=== PATIENT | female | born 1995 ===

== ENCOUNTER 2016-09-18 09:10 | Emergency (ER) | payer MEDICAID ==
[~2016-09-18] VITALS: Ht 165.1 cm; Wt 131.8 kg
[~2016-09-18 09:10] MED LIST: DOCU-41 PO; FAMO20T PO; HYOS0.1281 SL; IBUP800T28 PO; METF500T4 PO; ONDA4TAB9 PO; ONDA8TAB10 PO; OXYC1TAB24 PO; PANT20T PO; [UNRECOGNIZED DRUG - OTHER] PO
[2016-09-18 09:13] VITALS: BP 132/74; PULSE 85; RESP 18; O2SAT 98
[2016-09-18] MEDS ORDERED: CHOL500050 PO (09:37)
--- NOTE | 2016-09-18 10:08 | ED.REPORT ---
HPI-Back Pain Under 40 Date of Service Sep 18, 2016 ED Provider: Nancy Leonardo MD Patient is a 21 year old female with a history of chronic back pain and scoliosis who presents to the ED complaining of increased back pain onset yesterday. Associated symptoms include numbness in her right leg and that her right leg feels cold. She denies incontinence, bowel or bladder dysfunction. The patient reports that this morning at 0400 the numbness had slightly improved but she was experiencing a tingling paresthesia and her back pain had worsened. She denies any use of pain medication. Nursing Notes Stated Complaint: NUMBNESS IN RT LEG AND HIP CAUSING PAIN Chief Complaint: Back Pain or Injury Nursing Notes Reviewed: Yes Allergies: Coded Allergies: No Known Allergies (Verified Allergy, Unknown, 10/10/15) Miscellaneous Medications Cholecalciferol (Vitamin D3) (Vitamin D) 50,000 Unit Capsule 50,000 UNIT PO General Time Seen by MD: 10:05 Chief Complaint Back pain Hx Obtained From: Patient Arrived By: Walk-in Sudden in Onset?: Yes Onset Occurred: Yesterday Symptom Duration: Since onset Location: : Spinal lumbar area Quality: Painful Radiation: : Right leg above knee Severity: Current: Severe Severity: Maximum: Severe Recent Healthcare: No recent hospitalization, Recent doctor visit Similar Sx Previous: Yes Past Medical History Past Medical History Normal vaginal delivery on 09/18/2015 Cholecystitis as a child chronic back pain scoliosis Reports: Obesity Past Surgical History Reports: Appendectomy Family History Noncontributory Smoking History Unknown if Ever Smoker Social History Alcohol Use: Denies alcohol use Drug Use: Denies drug use Other Social History: Good social support, Lives with children, Local resident Ambulatory Status Independent Review of Systems Constitutional: Denies: Chills, Fever Respiratory: Denies: Non-productive cough, Shortness of breath Female: Denies: Incontinence Musculoskeletal: Reports: Back pain, Extremity pain (right leg) Neurologic: Reports: Numbness, Denies: Bladder dysfunction, Bowel dysfunction, Problem walking Complete sys rev & neg: except as marked. Skin: Denies Itching, Denies Rash Physical Exam Initial Vital Signs Vital Signs (First) Date Time Temp Pulse Resp B/P Pulse Ox O2 Delivery O2 Flow Rate FiO2 09/18/16 09:13 36.6 85 18 132/74 98 Room Air Initial VS: Reviewed General/Constitutional: Awake, Alert Neurologic: Oriented X3, Speech NL, No motor deficits, No sensory deficits Respiratory / Chest: Atraumatic, Breath sounds NL, Breath sounds = bilat, No respiratory distress Cardiovascular: Heart rate NL, Regular rhythm, Heart sounds NL Lower Extremity / Pelvis / MS: Neurologic intact, Vascular intact decreased right patellar and ankle reflex subjectively both leg temperatures were the same Head / Eyes: Atraumatic, Normocephalic, PERRL, EOMI Skin: Atraumatic, Color NL, No rash, Warm, Dry Psychiatric: Affect NL, Mood NL Interpretation & Diagnostics Interpretation & Diagnostics: LUMBAR SPINE MRI: IMPRESSION: No acute trauma found but there is overall moderately severe degenerative disc disease and 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 Dictated by: Abisai Canchola M.D. on 09/18/2016 at 14:24 Approved by: Abisai Canchola M.D. on 09/18/2016 at 14:32 Re-Eval/Medical Decision Re-Evaluation/Progress #1: Time of Eval: 15:12 Re-Evaluation/Progress Note: Discussed MRI results and plan to consult with neurosurgery. Re-Evaluation/Progress #2: Time of Eval: 15:49 Re-Evaluation/Progress Note: Patient would like to be discharged. She is given a referral to follow up with neurosurgery. Discussed plan for discharge. Patient understands and agrees to the plan. All questions were addressed. Counseled Regarding: Diagnosis, Lab results, Need for follow-up, When/why to return to ED Discharge & Departure Impression: Primary Impression: Spinal stenosis Spinal region: lumbar Qualified Code: M48.06 - Spinal stenosis, lumbar region Additional Impression: Herniated disc Spinal region: lumbar Qualified Code: M51.26 - Other intervertebral disc displacement, lumbar region Disposition: Home All VS Reviewed: Yes Condition: Stable Patient Instructions: Cervical Disc Herniation (ED), Cervical Spinal Stenosis ( ED) Additional Instructions: Your MRI showed spinal stenosis and a herniated disc, this is likely causing nerve impingement and your back pain. You should follow up with the neurosurgeon for further evaluation. You may need a referral from your primary care doctor to get an appointment. I've given you the name of the providers up in [place] as well as one of the providers in [place]. You can take Tylenol or ibuprofen as needed for pain. Referrals: Livier Pedroza (PCP) Jack Walker MD Attestation Portions of this note were transcribed by Kathy Beltran. I, Dr. Leonardo personally performed the history, physical exam and medical decision-making; I reviewed and confirmed the accuracy of the information in the transcribed note. Signed by: Zaid Quintana, 09/18/16 and 1052 copies to: Jack Walker MD; Livier Pedroza; Jourdan Diaz MD, Shawna L MD Sep 18, 2016 10:08 Domenica Beltran Sep 18, 2016 10:48 Domenica Beltran Sep 18, 2016 10:48
[2016-09-18] MEDS ORDERED: oxyCODONE-Acetamin 5-325 mg Tablet PO ONE (11:30)
--- NOTE | 2016-09-18 14:35 | DRSVH ---
PROCEDURE: MRI LUMBAR SPINE WITHOUT CONTRAST ([id number]) INDICATIONS: acute R leg paresthesia, "cold", severe pain TECHNIQUE: Noncontrast sagittal T1 spin echo and T2 fast echo, sagittal STIR, axial T1 and T2 fast spin echo thr ough the lumbar spine. In cases with scoliosis, additional coronal T2 fast spin echo may be performe d. COMPARISON: [facility], CR, XR LUMBAR SPINE 2 OR 3VW, 04/25/2016, 12:06. [facility], CR, XR LUMBAR SPINE 2 OR 3VW, 08/10/2016, 11:03. FINDINGS: Image quality: Excellent. Alignment and Curvature: There is normal bony alignment. Bone Marrow: Marrow is of normal overall signal. No acute vertebral body compression fractures. Spinal Cord: Conus medullaris terminates at the L1 level. Visualized cord demonstrates normal signa l and size. Paraspinous Soft Tissues: No paravertebral masses. L1-L2: Normal appearance. L2-L3: There is moderately severe degenerative disc disease with a pattern of reduced disc height and disc desiccation with a broad-based posterior disc bulge most prominent at and to the right of midli ne where a disc protrusion or contiguous disc herniation is present which has a transverse dimension of 1 cm, a maximal AP dimension of 9 mm, and at maximal craniocaudad dimension of 1.5 cm. This cause s moderate spinal stenosis at and to the right of midline and combines with bilateral facet osteoarth ritis, left greater than right, to produce a moderate right and moderately severe left foraminal sten osis with likelihood of asymmetric impingement on the course of the L2 nerve roots. L3-L4: The degenerative disc disease at this level is also moderately severe, with disc degradation, disc desiccation, and also with a midline focal contiguous disc herniation causing near severe spinal stenosis, having a transverse dimension of 1.1 cm, an AP dimension of 1.0 cm, and a craniocaudad dim ension of 1.5 cm. Left greater than right moderate facet osteoarthritis is seen, with associated lef t greater than right moderate foraminal stenosis and potential for asymmetric impingement on the cour se of the L3 nerve roots. L4-L5: Moderate degenerative disc disease, with a disc height reduction and desiccation pattern but o nly minimal posterior disc bulging slightly greater on the left than the right. Facet osteoarthritis also appears greater on the left than the right with moderate left and mild to moderate right forami nal stenosis. Mild left-sided spinal stenosis is present. L5-S1: Normal. IMPRESSION: No acute trauma found but there is overall moderately severe degenerative disc disease a nd asymmetric left greater than right facet osteoarthritis as noted above most pronounced at L23 and L3-4, with both spinal and foraminal stenosis and contiguous disc herniations or disc protrusions at the L2-3 and L3-4 levels producing significant likelihood of nerve root impingement and spinal stenos is. Dictated by: Abisai Canchola M.D. on 09/18/2016 at 14:24 Approved by: Abisai Canchola M.D. on 09/18/2016 at 14:32
[2016-09-18 16:06] VITALS: BP 134/70; PULSE 80; RESP 16; O2SAT 98
== END 2016-09-18 16:08 | disposition home or self-care (01) ==
LOC: SED 09:10
DX: M48.06 Spinal stenosis, lumbar region (principal); M51.26 Other intervertebral disc displacement, lumbar region; M54.9 Dorsalgia, unspecified; G89.29 Other chronic pain; M41.9 Scoliosis, unspecified; E66.9 Obesity, unspecified; Z68.42 Body mass index [BMI] 45.0-49.9, adult
CPT/HCPCS: 72148; 96372; 99284; J1885

== ENCOUNTER 2016-09-20 02:22 | Emergency (ER) | payer MEDICAID ==
[~2016-09-20] VITALS: Ht 165.1 cm; Wt 137.7 kg
[~2016-09-20 02:22] MED LIST changes: +CHOL500050 PO; -DOCU-41 PO; -FAMO20T PO; -HYOS0.1281 SL; -IBUP800T28 PO; -METF500T4 PO; -ONDA4TAB9 PO; -ONDA8TAB10 PO; -OXYC1TAB24 PO; -PANT20T PO; -[UNRECOGNIZED DRUG - OTHER] PO
--- NOTE | 2016-09-20 02:27 | ED.REPORT ---
HPI-Back Pain Under 40 Date of Service Sep 20, 2016 ED Provider: Dr. Lala Pt is a 21 year old female with a hx of chronic back pain and scoliosis presenting to the ED via EMS complaining of worsened lower back pain onset 3 days ago. Associated symptoms include urinary incontinence, right sided leg pain , numbness in her hand, and bilateral leg tingling. She denies any bowel incontinence. She was seen in the ED 2 days ago for similar symptoms and was diagnosed by MRI with a herniated disc and spinal stenosis. Nursing Notes Stated Complaint: BACK PAIN Chief Complaint: Back pain Nursing Notes Reviewed: Yes Allergies: Coded Allergies: No Known Allergies (Verified Allergy, Unknown, 10/10/15) Scheduled PRN oxyCODONE-Acetaminophen 5-325 mg (oxyCODONE-Acetaminophen 5-325 mg) 1 Each Tablet 2 TAB PO [id number] PRN PRN For Pain Miscellaneous Medications Cholecalciferol (Vitamin D3) (Vitamin D) 50,000 Unit Capsule 50,000 UNIT PO General Time Seen by MD: 02:27 Chief Complaint Back pain Hx Obtained From: Patient Arrived By: Ambulance Sudden in Onset?: No Onset Occurred: 3 days ago Symptom Duration: Since onset Location: : Spinal lumbar area Quality: Painful Severity: Current: Moderate Severity: Maximum: Severe Recent Healthcare: No recent hospitalization, Recent doctor visit Similar Sx Previous: Yes Past Medical History Past Medical History Notes: LUMBAR SPINE MRI 09/18/2016: IMPRESSION: No acute trauma found but there is overall moderately severe degenerative disc disease and 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 Past Medical History Normal vaginal delivery on 09/18/2015 Cholecystitis as a child chronic back pain scoliosis Reports: Obesity Past Surgical History Reports: Appendectomy Family History Noncontributory Smoking History Unknown if Ever Smoker Social History Alcohol Use: Denies alcohol use Drug Use: Denies drug use Other Social History: Good social support, Lives with children, Local resident Ambulatory Status Independent Review of Systems Female: Reports: Incontinence Musculoskeletal: Reports: Back pain, Extremity pain Neurologic: Reports: Numbness, Denies: Bowel dysfunction Complete sys rev & neg: except as marked. Physical Exam Initial Vital Signs Vital Signs (First) Date Time Temp Pulse Resp B/P Pulse Ox O2 Delivery O2 Flow Rate FiO2 09/20/16 02:34 37.1 96 14 133/81 96 Room Air Initial VS: Reviewed Head / Eyes: Atraumatic, Normocephalic, PERRL ENT: Mucous membranes moist, Conjunctiva normal, No scleral icterus Neck: Supple, Non-tender, Full range of motion Respiratory: Breath sounds normal, Clear to auscultation, No respiratory distress Cardiovascular: Regular rate & rhythm, Heart sounds normal, Intact distal pulses Abdomen / GI: Soft, Non-tender, No guarding, No rebound, No distention Extremities: Vascular intact, Neuro intact, No swelling, No tenderness Skin: Warm, Dry, No cyanosis Psychiatric: Mood/affect normal, Behavior normal, Normal thought content General/Constitutional: Awake, Alert Appearance / Presentation: Positive: Obese Back: Atraumatic Flank / Spine / Paraspinal: Positive: Lumbar spine tender... Neurologic: Oriented X3, Speech NL, No motor deficits, No sensory deficits, Reflexes equal bilat Sensation intact in lower extremities. Re-Eval/Medical Decision Med Decision/Clinical Course 21-year-old documented lumbar disc disease and spinal stenosis presents with worsening right sciatica. She is on a low dose of oxycodone already, and was increased to two tablets 5 mg each every 4 hours when necessary. Improved here with Toradol and Robaxin in addition. Continue recently prescribed steroid taper. Discharged for follow-up with back surgeon is already being arranged by her PCP. Re-Evaluation/Progress : Time of Eval: 05:36 Patient Status: Condition improved Re-Evaluation/Progress Note: Discussed plan for discharge. Pt understands and agrees with plan. Counseled Regarding: Diagnosis, Lab results, Need for follow-up, When/why to return to ED Discharge & Departure Impression: Primary Impression: Spinal stenosis Spinal region: unspecified Qualified Code: M48.00 - Spinal stenosis, site unspecified Additional Impressions: Sciatica due to displacement of lumbar intervertebral disc Morbid obesity Disposition: Home All VS Reviewed: Yes Condition: Improved Patient Instructions: Lumbar Spinal Stenosis (ED), Sciatica (ED) Additional Instructions: Rest in a comfortable position as best as possible. Avoid bending, seated posture, and of course, avoid lifting, straining, and bending. Continue Naprosyn twice daily. Continue prescribed Dosepak. We will increase your oxycodone to two tablets every four hours as needed. Follow up with your doctor in the office. Your oxycodone will need to be renewed by your doctor. It cannot be renewed in the emergency department. Referrals: Livier Pedroza (PCP) Zaid Attestation Portions of this note were transcribed by Alanis Mo. I, Dr. Lala personally performed the history, physical exam and medical decision-making; I reviewed and confirmed the accuracy of the information in the transcribed note. Signed by: Zaid Franklin, 09/20/2016 at 0535. copies to: Livier Pedroza Christopher W MD Sep 20, 2016 02:27 ALANIS MO Sep 20, 2016 02:37
[2016-09-20 02:34] VITALS: BP 133/81; PULSE 96; RESP 14; O2SAT 96
[2016-09-20] MEDS ORDERED: Dexamethasone 20 mg/2 mL Oral Solution PO ONE (02:35)
[2016-09-20] MEDS ORDERED: OXYC1TAB24 PO (05:33)
[2016-09-20 05:44] VITALS: BP 148/95; PULSE 85; RESP 16; O2SAT 95
== END 2016-09-20 05:33 | disposition home or self-care (01) ==
LOC: SED 02:22
DX: M48.00 Spinal stenosis, site unspecified (principal); M51.16 Intervertebral disc disorders with radiculopathy, lumbar region; E66.01 Morbid (severe) obesity due to excess calories
CPT/HCPCS: 96372; 99283; J1885